=== PATIENT | female | born 1945 | race Caucasian/White ===

== ENCOUNTER 2023-10-25 04:39 | Day surgery (SDC) | payer OTHER ==
[2023-10-22 15:26] VITALS: BMI 28.5
[2023-10-25 11:29] VITALS: TEMP 98.2
[2023-10-25 11:34] VITALS: BP 117/61; PULSE 63; RESP 17
== END 2023-10-25 09:24 | disposition home or self-care (01) ==
LOC: JASU-ENDO 04:39
PROVIDERS: ATTEND Internal Medicine Gastroenterology
PROC: 0DJD8ZZ Inspection of Lower Intestinal Tract, Via Natural or Artificial Opening Endoscopic (ICD-10-PCS; principal; 2023-10-25 08:00)
DX: Z12.11 Encounter for screening for malignant neoplasm of colon (principal)